=== PATIENT | female | born 1990 | race Caucasian/White ===

== ENCOUNTER 2018-09-07 15:30 | Inpatient (IN) | payer SELFPAY ==
[~2018-09-07] VITALS: Ht 175.3 cm; Wt 69.8 kg
[2018-09-07 16:18] LABS: Urine Bacteria NONE SEEN /hpf (None Seen); Urine Blood 2+ /uL (Negative); Urine Hyaline Cast FEW /lpf (0 - 2); Urine Specific Gravity 1.027 (1.001-1.035); Urine WBC 24 /hpf (0 - 5)
[2018-09-07 16:30] LABS: Basophils # (auto) 0.1 uL; Basophils % (auto) 0.7 % (0.0-2.0); Eosinophils # (auto) 0.1 uL; Eosinophils % (auto) 0.5 % (0.0-7.0); Hematocrit 46.7 % (36.0-46.0); Hemoglobin 15.8 g/dL (12.2-16.2); Lymphocytes # (auto) 1.6 uL; Lymphocytes % (auto) 13.8 % (10.0-50.0); Mean Corpuscular Hemoglobin 32.6 pg (28.0-32.0); Mean Corpuscular Hgb Conc. 33.9 g/dL (32.0-36.0); Mean Corpuscular Volume 96.3 fL (80.0-100.0); Monocytes # (auto) 0.9 uL; Monocytes % (auto) 7.7 % (0.0-12.0); Neutrophils # (auto) 9.2 uL; Neutrophils % (auto) 77.3 % (37.0-80.0); Platelet Count (auto) 282 10^3/uL (140-450); Red Blood Cells 4.85 10^6/uL (4.0-5.20); Red Cell Distribution Width 12.5 % (11.8-14.3); White Blood Cell 11.9 10^3/uL (4.4-10.8)
[2018-09-07 16:50] LABS: Alanine Aminotransferase 20 U/L (13-56); Albumin 3.5 g/dL (3.4-5.0); Anion Gap 11 (5-15); Blood Urea Nitrogen 13 mg/dL (7-18); Calcium 12.3 mg/dL (8.5-10.1); Carbon Dioxide 25 mmol/L (21-32); Chloride 100 mmol/L (98-107); Potassium 4.7 mmol/L (3.5-5.1); Sodium 136 mmol/L (136-145)
[2018-09-07 16:55] LABS: Alkaline Phosphatase 105 U/L (45-117); Aspartate Aminotransferase 11 U/L (15-37); Bilirubin, Total 0.6 mg/dL (0.2-1.0); GFR African American 107 mL/min; GFR Non-African American 88 mL/min; Total Protein 8.3 g/dL (6.4-8.2)
[2018-09-07 17:11] LABS: Glucose 426 mg/dL (74-106)
[2018-09-07] MEDS ORDERED: SODIUM CHLORIDE 0.9% 1,000 ML IVB ONE (17:21)
[2018-09-07 17:42] LABS: Magnesium 2.1 mg/dL (1.6-2.6)
[2018-09-07] MEDS ORDERED: KETOROLAC TROMETH 30 MG/ML 1ML VIAL IV ONE (18:45)
[2018-09-07] MEDS ORDERED: InsuLIN REG 1unit/0.01ml Soln (100units/ml) IV ONE (18:45)
[2018-09-07] MEDS ORDERED: PROMETHAZINE HCL 25 MG/ML 1ML IV ONE (18:45)
[2018-09-07] MEDS ORDERED: ACETAMINOPHEN 500 MG TAB PO PRN (19:30)
[2018-09-07] MEDS ORDERED: MORPHINE SULF INJ 2 MG/ML SYRINGE 1ML IV PRN (19:30)
[2018-09-07] MEDS ORDERED: DEXTROSE (50%) 50ML SYRG IV PRN (19:30)
[2018-09-07] MEDS ORDERED: ONDANSETRON HCL 4 MG/2 ML VIAL IV PRN (19:30)
[2018-09-07] MEDS: SODIUM CHLORIDE 0.9% 1,000 ML IV SCH ×2 (19:30→22:11)
[2018-09-07] MEDS: InsuLIN REG 1unit/0.01ml Soln (100units/ml) SC SCH (20:00)
[2018-09-07] MEDS: ACCU-CHEK COMFORT CURVE STRIP VI SCH (20:09)
[2018-09-07 20:19] LABS: Alcohol, Urine < 3.0 mg/dL (0-5); Amphetamine Screen, Urine NEGATIVE (NEGATIVE); Barbiturate Scree,Urine NEGATIVE (NEGATIVE); Benzodiazephine Screen, Urine NEGATIVE (NEGATIVE); Cannabinoid Screen, Urine NEGATIVE (NEGATIVE); Cocaine Screen, Urine NEGATIVE (NEGATIVE); Opiate Scree,Urine NEGATIVE (NEGATIVE); Phencyclidine Screen, Urine NEGATIVE (NEGATIVE)
[2018-09-07 21:00] VITALS: BP 111/66
--- NOTE | 2018-09-07 21:00 | NUR ---
MS admit from ER Patient admitted to tele/MS after SBAR received and oriented to primary RN, unit, room, bed, and unit policies regarding patient care and visiting hours. Bed is in lowest position and locked. Call light within reach. Board updated. Patient weighed by bedscale and encouraged to call if they need something. All questions and concerns addressed, patient verbalized understanding.
[2018-09-07 22:00] VITALS: BP 111/60
[2018-09-07] MEDS: INSULIN LANTUS (GLARGINE) 1 /0.01ml (100units/ml) SC SCH (22:10)
[2018-09-07] MEDS ORDERED: INSU100I2 SC (22:13)
[2018-09-07] MEDS ORDERED: INSLANTI SC (22:13)
[2018-09-07] MEDS ORDERED: INSUINJ18 SC (22:13)
[2018-09-08] MEDS: ACCU-CHEK COMFORT CURVE STRIP VI SCH ×6 (00:45→20:36)
[2018-09-08] MEDS: InsuLIN REG 1unit/0.01ml Soln (100units/ml) SC SCH ×6 (00:46→20:26)
[2018-09-08] MEDS: SODIUM CHLORIDE 0.9% 1,000 ML IV SCH ×4 (04:30→20:26)
[2018-09-08 05:46] VITALS: BP 103/61
[2018-09-08 06:18] LABS: Basophils # (auto) 0.1 uL; Basophils % (auto) 0.6 % (0.0-2.0); Eosinophils # (auto) 0.1 uL; Eosinophils % (auto) 1.7 % (0.0-7.0); Hematocrit 41.2 % (36.0-46.0); Hemoglobin 14.3 g/dL (12.2-16.2); Lymphocytes # (auto) 1.7 uL; Lymphocytes % (auto) 20.6 % (10.0-50.0); Mean Corpuscular Hemoglobin 33.1 pg (28.0-32.0); Mean Corpuscular Hgb Conc. 34.8 g/dL (32.0-36.0); Monocytes # (auto) 0.7 uL; Neutrophils # (auto) 5.6 uL; Neutrophils % (auto) 69.1 % (37.0-80.0); Nucleated Red Blood Cells % 0.2 %; Platelet Count (auto) 231 10^3/uL (140-450); Red Blood Cells 4.33 10^6/uL (4.0-5.20); Red Cell Distribution Width 12.4 % (11.8-14.3); White Blood Cell 8.1 10^3/uL (4.4-10.8)
[2018-09-08 06:37] LABS: Calcium 10.5 mg/dL (8.5-10.1); Potassium 4.5 mmol/L (3.5-5.1)
[2018-09-08 06:40] LABS: BUN/Creatinine Ratio 22.2
[2018-09-08] MEDS ORDERED: cefTRIAXone 1GM/50ML D5W 50 ML IV ONE (11:00)
[2018-09-08 17:00] VITALS: BP 116/74
--- NOTE | 2018-09-08 20:15 | NUR ---
Opening Shift Note: A&Ox4, resting in bed. Room air, pain level 6/10 in left flank, and ambulates independently without assistive devices. Bed locked in lowest position, side rails up x2, and call light within reach. IV 20 in right hand running NS at 175 ml/hr inserted on 09/07/18. Skin: left lower leg redness/scar; no open wounds. Patient does state urinary frequency and thirst. POC discussed and questions answered. Will continue to round prn.
[2018-09-08] MEDS: INSULIN LANTUS (GLARGINE) 1 /0.01ml (100units/ml) SC SCH (20:36)
[2018-09-08] MEDS: HYDROcodone-ACET 5/325MG TAB PO PRN (20:46)
[2018-09-08 21:52] VITALS: BP 145/84
[2018-09-09] MEDS: SODIUM CHLORIDE 0.9% 1,000 ML IV SCH ×5 (00:48→21:43)
[2018-09-09] MEDS: InsuLIN REG 1unit/0.01ml Soln (100units/ml) SC SCH ×6 (04:00→21:42)
[2018-09-09] MEDS: ACCU-CHEK COMFORT CURVE STRIP VI SCH ×6 (04:07→21:42)
[2018-09-09] MEDS: HYDROcodone-ACET 5/325MG TAB PO PRN ×2 (04:16→16:19)
[2018-09-09 05:00] VITALS: BP 141/77
[2018-09-09 08:27] VITALS: BP 111/70
[2018-09-09] MEDS ORDERED: cefTRIAXone 1GM/50ML D5W 50 ML IV SCH (09:00)
[2018-09-09 11:39] VITALS: BP 115/72
[2018-09-09] MEDS ORDERED: KETOROLAC TROMETH 30 MG/ML 1ML VIAL IV PRN (11:45)
[2018-09-09 16:51] VITALS: BP 124/82
--- NOTE | 2018-09-09 20:15 | NUR ---
RECEIVED PATIENT IN BED, AAOX4. NO DISTRESS NOTED. AFEBRILE. DENIES ANY PAIN NOW. NO SOB NOTED. POCS DISCUSSED WITH PATIENT AND SHOWED UNDERSTANDING. BED KEPT ON LOWEST POSITION. SIDE RAIL UP. CALL LIGHT/TABLE IN REACH. KEPT COMFORTABLE.
[2018-09-09 21:00] VITALS: BP 117/78
[2018-09-09] MEDS: INSULIN LANTUS (GLARGINE) 1 /0.01ml (100units/ml) SC SCH (21:43)
[2018-09-10] MEDS: ACCU-CHEK COMFORT CURVE STRIP VI SCH ×5 (00:16→21:05)
[2018-09-10] MEDS: HYDROcodone-ACET 5/325MG TAB PO PRN ×4 (03:32→21:06)
[2018-09-10] MEDS: InsuLIN REG 1unit/0.01ml Soln (100units/ml) SC SCH ×5 (04:38→17:00)
[2018-09-10] MEDS: SODIUM CHLORIDE 0.9% 1,000 ML IV SCH ×2 (04:38→10:03)
[2018-09-10 04:54] VITALS: BP 107/70
--- NOTE | 2018-09-10 06:13 | NUR ---
ON BED, ASLEEP. STABLE. NO DISTRESS NOTED. FOR MORE CARE AND MANAGEMENT.
[2018-09-10] MEDS: cefTRIAXone SODIUM 1,000 MG in SODIUM CHL 0.9% 50 ML IV SCH (09:00)
[2018-09-10 09:16] VITALS: BP 102/61
--- NOTE | 2018-09-10 10:42 | NUR ---
assessment Patient is a 28 year old female who is alert and oriented. Patients cognitive abilities are intact. Prior to admission patient lived home with family and functioned independently. Patient informed me she is able to care for her own ADLs. Per patient she will return home to her prior living arrangements post discharge and family will transport her home. Patient informed me she just moved here from [place]. Patient has been using her insulin sparingly. Patient has no insurance. Patient has been assessed by Manan Gupta of [facility]. Patient may qualify for [employer] if she brings back all her paperwork. I have provided patient with resources for [facility], Dr. Bazzi, and [facility] urgent care for follow up visits. I have provided patient with a prescription card from community assistance program. I informed patient she has a right to speak to a elementary school social worker regarding all care. I informed patient she has a right to participate in any and all discharge planning. Patient is aware of visiting hours on the hospital floor. I informed patient she has a right to privacy. Patient does not have a POA and advanced directive. I have offered patient information on POA and advanced directives. I informed the patient the advantages and benefits of having an Advanced Directive. Patient verbalized understanding and agreed to discharge plan. Per ss consult needs PCP. Patient has no Insurance. Once medi-[employer] is approved she will be assigned a PCP. Addendum: 09/10/18 at 1047 by Cathy Kyle Amended: Links added.
[2018-09-10] MEDS ORDERED: DEXTROSE (50%) 50ML SYRG IV PRN (12:15)
[2018-09-10] MEDS: SOD CHL 0.45% 1,000 ML IV SCH ×2 (12:15→21:05)
[2018-09-10 12:39] VITALS: BP 120/68
[2018-09-10 16:38] VITALS: BP 110/71
--- NOTE | 2018-09-10 20:00 | NUR ---
RECEIVED PATIENT IN BED, AAOX4. NO DISTRESS NOTED. AFEBRILE. DENIES ANY PAIN NOW. POCS DISCUSSED WITH PATIENT AND SHOWED UNDERSTANDING. BED KEPT ON LOWEST POSITION. SIDE RAILS UP. CALL LIGHT/TABLE IN REACH. KEPT COMFORTABLE.
[2018-09-10 22:00] VITALS: BP 104/67
[2018-09-10] MEDS ORDERED: INSULIN LANTUS (GLARGINE) 1 /0.01ml (100units/ml) SC SCH (22:00)
[2018-09-10] MEDS ORDERED: InsuLIN REG 1unit/0.01ml Soln (100units/ml) SC SCH (22:00)
[2018-09-11 05:00] VITALS: BP 116/68
[2018-09-11] MEDS: HYDROcodone-ACET 5/325MG TAB PO PRN (05:37)
[2018-09-11 05:38] LABS: INR 0.94 (0.9-1.15); Partial Thromboplastin Time 33.8 sec (23.78-33.04); Prothrombin Time 10.1 sec (9.27-12.13)
[2018-09-11] MEDS: InsuLIN REG 1unit/0.01ml Soln (100units/ml) SC SCH ×2 (05:38→12:40)
[2018-09-11] MEDS: ACCU-CHEK COMFORT CURVE STRIP VI SCH ×2 (05:38→11:30)
[2018-09-11 05:41] LABS: BUN/Creatinine Ratio 10.9; Calcium 10.3 mg/dL (8.5-10.1); Potassium 4.6 mmol/L (3.5-5.1)
--- NOTE | 2018-09-11 06:49 | NUR ---
ON BED, ASLEEP. STABLE. NO DISTRESS NOTED. FOR MORE CARE AND MANAGEMENT.
[2018-09-11] MEDS: SOD CHL 0.45% 1,000 ML IV SCH (08:05)
[2018-09-11 09:00] VITALS: BP 110/62
[2018-09-11] MEDS: cefTRIAXone SODIUM 1,000 MG in SODIUM CHL 0.9% 50 ML IV SCH (09:00)
--- NOTE | 2018-09-11 11:39 | NUR ---
Nutrition Assessment Notes please see attached link for complete assessment Est. Needs BW [id number] kcal (25-30 kcal/kgBW), 70-84 gms pro (1.0-1.2 gms/kgBW). Will continue to monitor pertinent labs and reassess nutrient need prn Addendum: 09/11/18 at [address] Amended: Links added.
[2018-09-11 13:00] VITALS: BP 104/65
== END 2018-09-11 16:30 | disposition home or self-care (01) | DRG 693 ==
LOC: ER 15:34 → OVERFLOW 19:36 → TELE-WESTW 20:00 → WEST WING 20:54
PROVIDERS: ADMIT Nurse Practitioner Acute Care; ATTEND Internal Medicine
DX: N20.0 Calculus of kidney (principal); E10.10 Type 1 diabetes mellitus with ketoacidosis without coma; N39.0 Urinary tract infection, site not specified; F17.210 Nicotine dependence, cigarettes, uncomplicated; E21.3 Hyperparathyroidism, unspecified; M54.5 Low back pain; E86.0 Dehydration; Z79.4 Long term (current) use of insulin; Z80.3 Family history of malignant neoplasm of breast; Z91.19 Patient's noncompliance with other medical treatment and regimen; Z83.3 Family history of diabetes mellitus
CPT/HCPCS: 36415; 71046; 74176; 76775; 80048; 80053; 80307; 81001; 81025; 82010; 82962; 83036; 83690; 83735; 83970; 84443; 84484; 85025; 85610; 85730; 87086; 93005; G0378; J0696; J1815; J1885

== ENCOUNTER → 2020-01-19 | Emergency (ER) | payer MEDICAID ==
[~2020-01-19] VITALS: Ht 175.3 cm; Wt 72.6 kg
[~2020-01-19] MED LIST: INSLANTI SC; INSU100I2 SC; INSUINJ18 SC; INSULIN LANTUS (GLARGINE) 1 /0.01ml (100units/ml) SC ONE
[2020-01-19 06:04] VITALS: BP 102/61
== END | disposition home or self-care (01) ==
LOC: ER 05:42
DX: E10.8 Type 1 diabetes mellitus with unspecified complications (principal); F41.9 Anxiety disorder, unspecified; F17.210 Nicotine dependence, cigarettes, uncomplicated; Z79.4 Long term (current) use of insulin
CPT/HCPCS: 96372; 99283; J1815

== ENCOUNTER 2020-08-20 02:59 | Emergency (ER) | payer MEDICAID ==
[~2020-08-20] VITALS: Ht 162.6 cm; Wt 68.0 kg
[~2020-08-20 02:59] MED LIST changes: -INSULIN LANTUS (GLARGINE) 1 /0.01ml (100units/ml) SC ONE
[2020-08-20] MEDS ORDERED: IBUPROFEN 800 MG TAB PO ONE (05:15)
[2020-08-20] MEDS ORDERED: InsuLIN REG 1unit/0.01ml Soln (100units/ml) SC ONE (10:15)
[2020-08-20 12:00] VITALS: BP 114/70
== END 2020-08-20 12:26 | disposition home or self-care (01) ==
LOC: EDBD 02:59 → EEVIPCON 03:02 → ER 03:02
DX: S05.12XA Contusion of eyeball and orbital tissues, left eye, initial encounter (principal); S10.93XA Contusion of unspecified part of neck, initial encounter; S30.810A Abrasion of lower back and pelvis, initial encounter; S80.812A Abrasion, left lower leg, initial encounter; S70.211A Abrasion, right hip, initial encounter; S70.212A Abrasion, left hip, initial encounter; S40.812A Abrasion of left upper arm, initial encounter; Z32.02 Encounter for pregnancy test, result negative; Y04.2XXA Assault by strike against or bumped into by another person, initial encounter; Y93.89 Activity, other specified; Y92.89 Other specified places as the place of occurrence of the external cause; Y99.8 Other external cause status
CPT/HCPCS: 70450; 81025; 82962; 96372